=== PATIENT | male | born 1955 | race Caucasian/White ===

== ENCOUNTER → 2019-03-21 | Outpatient (REF) | payer MEDICARE ==
[2019-03-21 13:52] LABS: PLATELET COUNT, AUTOMATED 387 10^3/uL (150-450)
[2019-03-21 14:07] LABS: INR 1.13; PROTHROMBIN TIME 14.2 SECONDS (11.8-14.0)
[2019-03-21 14:08] LABS: PARTIAL THROMBOPLASTIN TIME 35.9 SECONDS (25.0-38.4)
== END ==
LOC: M LAB REF 13:03
PROVIDERS: ATTEND Internal Medicine Pulmonary Disease
DX: R91.8 Other nonspecific abnormal finding of lung field (principal); Z79.01 Long term (current) use of anticoagulants

== ENCOUNTER 2019-04-06 10:17 | Observation (INO) | payer MEDICARE ==
[~2019-04-06] VITALS: Ht 170.2 cm; Wt 74.0 kg
[~2019-04-06 10:17] MED LIST changes: -LIDOCAINE 1% MDV 20ML VIAL As Ordered ONE
--- NOTE | 2019-04-06 10:55 | REP ---
CT brain without contrast: History: CVA. 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 Bony calvarium is intact. Visualized paranasal sinuses are clear. There is mild vascular calcification in the carotid arteries bilaterally. No intraorbital abnormality is seen. On soft tissue window settings, there is no evidence of intracranial hemorrhage. There is no evidence of acute infarction. No mass, extra-axial fluid collection, or midline shift is seen. Impression: No acute intracranial abnormality. Electronically Signed by Brody Stewart MD 04/06/2019 10:52 A
[2019-04-06 11:11] LABS: BASO # 0.1 10^3/uL (0.0-0.2); BASO % 0.8 % (0.0-1.0); EOS # 0.6 10^3/uL (0.0-0.5); HEMATOCRIT 46.6 % (42.0-52.0); HEMOGLOBIN 14.7 g/dl (13.5-17.5); LYMPH # 1.9 10^3/uL (1.5-5.0); LYMPH % 12.8 % (24.0-44.0); MEAN CORPUSCULAR HEMOGLOBIN 27.4 pg (27.0-33.0); MEAN CORPUSCULAR HGB CONC 31.5 g/dl (32.0-36.5); MEAN CORPUSCULAR VOLUME 86.9 fl (80.0-96.0); MONO # 0.9 10^3/uL (0.0-0.8); MONO % 5.8 % (0.0-5.0); NEUTROPHILS # 11.1 10^3/uL (1.5-8.5); PLATELET COUNT, AUTOMATED 383 10^3/uL (150-450); RED BLOOD COUNT 5.36 10^6/uL (4.30-6.10); WHITE BLOOD COUNT 14.7 10^3/uL (4.0-10.0)
[2019-04-06 11:25] LABS: INR 1.03; PROTHROMBIN TIME 13.2 SECONDS (11.8-14.0)
[2019-04-06 11:26] LABS: PARTIAL THROMBOPLASTIN TIME 37.7 SECONDS (25.0-38.4)
[2019-04-06 11:38] LABS: BLOOD UREA NITROGEN 11 MG/DL (7-18); CALCIUM LEVEL 9.1 MG/DL (8.8-10.2); CARBON DIOXIDE LEVEL 27 MEQ/L (21-32); CHLORIDE LEVEL 107 MEQ/L (98-107); CK-MB VALUE MASS 1.4 NG/ML (<3.6); CPK CREATINE PHOSPHOKINASE 70 U/L (39-308); CREATININE FOR GFR 0.89 MG/DL (0.70-1.30); GLOMERULAR FILTRATION RATE > 60.0 (>49); GLUCOSE, FASTING 127 MG/DL (70-100); POTASSIUM SERUM 4.4 MEQ/L (3.5-5.1); SODIUM LEVEL 139 MEQ/L (136-145); TROPONIN I 0.19 NG/ML (< 0.10)
[2019-04-06] MEDS: ENOXAPARIN 40 MG/0.4 ML SYRINGE (J1650) SC SCH (14:00)
--- NOTE | 2019-04-06 14:37 | REP ---
MR angiography the brain without contrast: History: Left-sided weakness. Question CVA. Technique: 3-D [id number] MR angiography of the brain is acquired in the usual fashion and maximal intensity projection images were generated in rotational format about the vertical and horizontal axes. In addition, source axial T1-weighted images are viewed in cine mode. MR angiographic findings: The distal vertebral arteries are patent and co-dominant. Basilar artery is a little tortuous but widely patent. The posterior cerebral and superior cerebellar vessels are normal and symmetric. The distal internal carotid arteries are unremarkable. Anterior and middle cerebral arteries appear intact. There is no visible harding aneurysm or arteriovenous malformation. Impression: Unremarkable MR angiography the brain. Electronically Signed by Brody Stewart MD 04/06/2019 02:29 P
--- NOTE | 2019-04-06 14:50 | REP ---
MRI BRAIN WITHOUT CONTRAST: HISTORY: Left-sided weakness. Comparison head CT is from earlier this date. TECHNIQUE: Axial and sagittal imaging planes are utilized for T1 and T2-weighted scans. Sequences include spin-echo, fast spin echo, FLAIR, and diffusion weighted sequences. MRI FINDINGS: No bony calvarial defect is seen. Craniocervical junction and upper cervical cord are normal in appearance. No intraorbital abnormality is seen. Diffusion-weighted scans show no evidence of focal restricted diffusion to suggest acute ischemia. There is no evidence of intracranial hemorrhage. There are two or three foci of T2-weighted hyperintensity in the subcortical white matter of the frontal and parietal lobes bilaterally. These are consistent with small vessel changes. No other abnormality. IMPRESSION: Minimal small vessel changes. No evidence of acute ischemia or other significant abnormality. Electronically Signed by Brody Stewart MD 04/06/2019 06:39 P
--- NOTE | 2019-04-06 15:14 | HPEPDOC ---
General Date of Admission Apr 06, 2019 at 10:18 Date of Service: Apr 06, 2019 Chief Complaint The patient is a 63-year-old male admitted with a reason for visit of TIA. Source: Patient, Other (emergency room staff) Exam Limitations: No limitations Timing/Duration: Day(s) (today) Severity: Moderate Associated Symptoms: Denies Symptoms History of Present Illness This is a 63-year-old male who had been seen in the radiology department for a percutaneous lung biopsy. After the biopsy was completed the patient experienced symptoms of inability to move his left arm and left leg. Per radiology staff the patient was unable to lift his arm or leg off of the gurney. The patient was brought over to the emergency room. In preparation for acute treatment of stroke. The episode lasted 20 minutes and did not recur. CT scan was negative for any findings. The patient does not fully recall the event. He states he was experiencing heartburn at the time. He denies any dizziness, lightheadedness, shortness of breath or chest pain. He denies any other similar episode in the past aside from a dizzy spell back in 2007. The patient has been concerned about a left upper lobe nodule. He believes it was noted 20 years ago. He has noticed recent increased fatigue but has maintained a good appetite. He's been evaluated by PET scan, which he states illuminated his neck as opposed to the lesion. Patient was seen by ENT and there were no findings. The lung lesion is described is spiculated. He states he has been told he has "complicated" cancer. Home Medications Scheduled Aspirin (Ecotrin) 81 Mg Tablet.dr, 81 MG PO ASDIRECTED, (Reported) TAKES 4 TO 5 TIMES WEEKLY - NO SPECIFIC DAYS Cholecalciferol (Vitamin D3) (Vitamin D3) 1,000 Unit Capsule, 1,000 UNIT PO DAILY, (Reported) Propranolol HCl (Propranolol HCl) 40 Mg Tablet, 40 MG PO BID, (Reported) Ramipril (Ramipril) 10 Mg Capsule, 10 MG PO DAILY, (Reported) Simvastatin (Simvastatin) 20 Mg Tablet, 20 MG PO QHS, (Reported) Umeclidinium Brm/Vilanterol Tr (Anoro Ellipta 62.5-25 Mcg INH) 1 Each Blst.w.dev, 1 PUFF INH DAILY, (Reported) Allergies Coded Allergies: Penicillins (Verified Allergy, Intermediate, HIVES, 04/06/19) Past Medical History Medical History Past medical history is remarkable for essential hypertension and dyslipidemia for which he is on a medication regimen. Surgical History He denies ever having had any surgeries. 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 A-FIB/CHADSVASC A-FIB History Current/History of A-Fib/PAF?: No Current PO Anticoag Therapy: No Review of Systems Other systems Review of 10 systems is otherwise negative except as stated in the brief HPI Physical Examination General Exam: Positive: Alert, Cooperative Eye Exam: Positive: PERRLA, Conjunctiva & lids normal; Negative: EOMI, Sclera icteric, Ptosis, Other Eye Symptoms ENT Exam: Positive: Atraumatic, Mucous membr. moist/pink, Other ENT (poor den tition) Neck Exam: Positive: Supple; Negative: JVD, thyromegaly Chest Exam: Positive: Clear to auscultation, Normal air movement Heart Exam: Positive: Rate Normal, Regular Rhythm, Normal S1, Normal S2; Negative: Murmurs, Rubs Telemetry: Positive: No significant arrhythmia Abdomen Exam: Positive: Normal bowel sounds, Soft; Negative: Tenderness, Hepatospenomegaly Extremity Exam: Positive: Normal pulses; Negative: Clubbing, Cyanosis, Edema, Tenderness, Swelling, Other Skin Exam: Positive: Nl turgor and temperature Neuro Exam: Positive: Normal Gait, Normal Speech, Strength at 5/5 X4 ext, Normal Tone, Cranial Nerves 3-12 NL, Reflexes 2+, Other (patient does not exhibit any focal neuromotor or sensory deficit) Psych Exam: Positive: Mental status NL (patient is appropriately anxious), Oriented x 3 Vital Signs Vital Signs Date Time Temp Pulse Resp B/P (MAP) Pulse Ox O2 Delivery O2 Flow Rate FiO2 04/06/19 10:22 60 18 171/74 (106) 100 2.0 Laboratory Data Labs 24H Laboratory Tests 2 04/06/19 11:00: Bedside Glucose (Misc Panel) 114 04/06/19 11:01: Immature Granulocyte % (Auto) 0.6, Neutrophils (%) (Auto) 76.0H, Lymphocytes (%) (Auto) 12.8L, Monocytes (%) (Auto) 5.8H, Eosinophils (%) (Auto) 4.0H, Basophils (%) (Auto) 0.8, Neutrophils # (Auto) 11.1H, Lymphocytes # (Auto) 1.9, Monocytes # (Auto) 0.9H, Eosinophils # (Auto) 0.6H, Basophils # (Auto) 0.1, Nucleated Red Blood Cells % (auto) 0.0, Prothrombin Time 13.2, Prothromb Time International Ratio 1.03, Activated Partial Thromboplast Time 37.7, Anion Gap 5L, Glomerular Filtration Rate > 60.0, Calcium Level 9.1, Total Creatine Kinase 70, Creatine Kinase MB 1.4, Creatine Kinase MB Relative Index 2.00, Troponin I 0.19H CBC/BMP Laboratory Tests 04/06/19 11:01 Assessment/Plan 1. Transient ischemic attack. Patient had an episode of about 20 minutes of immobility and weakness to his left upper and lower extremity. It was not accompanied by any other symptoms aren't completely resolved. CT scan of the head was negative for any lesion. Patient did not require intervention with thrombolytic. Brain MRI results are pending. Not currently exhibit any deficits and does not have any rehabilitation needs. 2. Risk factor management. Patient does have underlying history of essential hypertension and dyslipidemia. Patient will continue with daily aspirin and statin. 3. Left upper lobe lung nodule. Patient has just undergone biopsy of this. Further management will be determined by results. The patient is placed on telemetry observation status; we are anticipating his length of stay to be less than 2 midnights with initial workup. Echocardiogram and carotid Doppler results may not be available this weekend; patient could have outpatient follow-up. Plan / VTE VTE Prophylaxis Ordered?: Yes (Lovenox) Plan Diet: Continue Current Activity: Continue Current Diagnostics: Repeat Labs in AM, Ultrasound, MRI, TTE Anticipated Discharge: Home MCKINLEY MURPHY MD Apr 06, 2019 15:14
[2019-04-06 16:00] VITALS: BP 132/67
[2019-04-06] MEDS ORDERED: SLF 3 ML SYR IV PRN (16:45)
[2019-04-06] MEDS: ASPIRIN 81 MG ENTERIC TAB PO SCH (18:53)
[2019-04-06 20:00] VITALS: BP 127/66
--- NOTE | 2019-04-06 20:29 | ECGEPIP ---
[facility] - ED Test Date: 2019-04-06 Pat Name: DOMINIC OSBORN Department: Room: - Gender: Male Dopster: : [id number] Requested By: Mirna Winn Order Number: [id number] Reading MD: Mirna Winn Measurements Intervals [place] Rate: 58 P: 53 IN: 110 QRS: 11 QRSD: 90 T: 68 QT: 434 QTc: 429 Interpretive Statements SINUS BRADYCARDIA WITH SHORT IN INTERVAL NO PRIOR Electronically Signed on 04-06-2019 20:29:23 EST by Mirna Winn
[2019-04-06] MEDS: PROPRANOLOL 20 MG TAB PO SCH (20:38)
[2019-04-06] MEDS: SLF 3 ML SYR IV SCH (20:38)
[2019-04-06] MEDS ORDERED: SIMVASTATIN 20 MG TAB PO SCH (21:00)
[2019-04-07] VITALS (7 sets, daily range): BP systolic 116–198; BP diastolic 60–98
[2019-04-07] MEDS: SLF 3 ML SYR IV SCH ×2 (05:48→14:51)
--- NOTE | 2019-04-07 06:52 | REP ---
Duplex carotid sonography: History: TIA. Findings: Antegrade flow was observed in both vertebral arteries. Right carotid: The right common carotid artery shows mild diffuse intimal thickening. There is mild mixed plaquing in the bulb and proximal ICA on two-dimensional scanning on the right side. Color flow and spectral Doppler interrogation are unremarkable on the right. Velocity chart right carotid: CCA PSV: 77 cm/s ICA PSV: 69 cm/s ICA EDV: 23 cm/s ECA PSV: 90 cm/s Right ICA/CCA ratio normal 0.9. Impression: Less than 50% category narrowing in the right ICA by Doppler velocity criteria. Left carotid: The left common carotid artery shows mild diffuse intimal thickening. There is mild to moderate mixed plaquing in the bulb, proximal ICA, and proximal ECA on the left side on two-dimensional scanning. Color flow and spectral Doppler interrogation are unremarkable however. Velocity chart left carotid: CCA PSV: 95 cm/s ICA PSV: 84 cm/s ICA EDV: 24 cm/s ECA PSV: 94 cm/s Left ICA/CCA ratio normal 0.9. Impression: Less than 50% category narrowing in the left ICA by Doppler velocity criteria. Electronically Signed by Brody Stewart MD 04/07/2019 08:34 A
[2019-04-07 08:03] LABS: HEMOGLOBIN 14.5 g/dl (13.5-17.5); MEAN CORPUSCULAR HEMOGLOBIN 27.4 pg (27.0-33.0); MEAN CORPUSCULAR HGB CONC 31.5 g/dl (32.0-36.5); MEAN CORPUSCULAR VOLUME 86.8 fl (80.0-96.0); PLATELET COUNT, AUTOMATED 408 10^3/uL (150-450); WHITE BLOOD COUNT 12.1 10^3/uL (4.0-10.0)
[2019-04-07] MEDS: ASPIRIN 81 MG ENTERIC TAB PO SCH (08:19)
[2019-04-07] MEDS: PROPRANOLOL 20 MG TAB PO SCH (08:19)
[2019-04-07] MEDS: ENOXAPARIN 40 MG/0.4 ML SYRINGE (J1650) SC SCH (08:20)
[2019-04-07 08:32] LABS: ALBUMIN 3.6 GM/DL (3.2-5.2); ALT/SGPT 38 U/L (12-78); BILIRUBIN,TOTAL 0.4 MG/DL (0.2-1.0); BLOOD UREA NITROGEN 12 MG/DL (7-18); CALCIUM LEVEL 9.1 MG/DL (8.8-10.2); CARBON DIOXIDE LEVEL 29 MEQ/L (21-32); CHLORIDE LEVEL 105 MEQ/L (98-107); CREATININE FOR GFR 0.95 MG/DL (0.70-1.30); GLOMERULAR FILTRATION RATE > 60.0 (>49); GLUCOSE, FASTING 119 MG/DL (70-100); POTASSIUM SERUM 4.2 MEQ/L (3.5-5.1); SODIUM LEVEL 139 MEQ/L (136-145); TOTAL PROTEIN 7.1 GM/DL (6.4-8.2)
[2019-04-07 08:37] LABS: CK-MB VALUE MASS 1.3 NG/ML (<3.6); MB/CK RELATIVE INDEX 0.66 (< OR =4); TROPONIN I 0.32 NG/ML (< 0.10)
[2019-04-07] MEDS ORDERED: ramipriL 5 MG CAP PO SCH (09:00)
[2019-04-07] MEDS ORDERED: ATORVASTATIN 20 MG TAB PO SCH (09:00)
[2019-04-07] MEDS ORDERED: VITAMIN D 1,000 INTERNATIONAL UNITS TABLET PO SCH (09:00)
--- NOTE | 2019-04-07 09:14 | IPN ---
DATE: 04/07/2019 Mr. Collins was seen on the hospitalist service. He was admitted with transient ischemic attack (TIA). He had a half hour of left hemiparesis after a CT guided lung biopsy. MRI of the brain was negative. Ultrasound of carotids showed no stenosis. His neurologic exam has returned to baseline. He had an elevated troponin on admission, had flipped T waves on telemetry overnight. No electrocardiogram ordered with the flipped T waves. No morning labs ordered. I tried to call his primary care office to see what kind of "complicated cancer" he feels he has, but there is no answer. PHYSICAL EXAMINATION: Vital signs: 198/98 (patient says "my blood pressure is always that high in the morning". Pulse 55, respiratory rate 18, 96% oxygen saturation. General appearance: Alert, conversant, no distress. He is ambulating in the room. He is impatient to leave the hospital. Asking if he can get dressed and leave. HEENT: Unremarkable. No facial droop or weakness. Lungs: Clear. Heart: Regular rate and rhythm. 1/6 systolic ejection murmur. Abdomen: Soft, nontender. No masses. Trace peripheral edema. Moves arms and legs with equal strength. He has normal strength in the upper and lower extremities, grade 5/5. Normal coordination, no , normal gait. LABS: No morning labs were ordered. IMPRESSION: 1. TIA. He is back to baseline. He is currently on aspirin 81 mg daily. Statin therapy with simvastatin and TATIANA inhibitor and beta beatrice therapy. Brain MRI showed no stroke. He has echocardiogram pending. Standard treatment would be changing his simvastatin to a high intensity statin such as atorvastatin 40 mg daily and continuing antiplatelet therapy. 2. Elevated troponin/flipped T waves on EKG. Stat EKG ordered. Troponins ordered. Morning labs ordered. Followup based upon this. 3. Hypertension. Antihypertensives are ordered and pending. He is on propranolol 40 mg twice a day and ramipril 10 mg daily. Yesterday his daytime and evening blood pressures were acceptable. 4. Hyperlipidemia. Change diet, discontinue statin in the face of TIA. 5. Patient is probably going to leave against medical advice (AMA). Risks were detailed. He understands we are in the midst of a cardiac workup and at a minimum he should be here on telemetry for the next 24 hours. He understands and accepts the risk of that, but at this point he is willing to stay for the EKG and the results of the lab tests and I suspect he will probably leaving AMA.
[2019-04-07] MEDS ORDERED: CLOPIDOGREL 75 MG TAB PO STA (15:07)
[2019-04-07 17:16] LABS: CK-MB VALUE MASS 1.4 NG/ML (<3.6); MB/CK RELATIVE INDEX 0.74 (< OR =4); TROPONIN I 0.24 NG/ML (< 0.10)
--- NOTE | 2019-04-07 17:58 | CR ---
DATE OF CONSULTATION: 04/07/2019 URGENT CARDIOLOGY CONSULTATION REFERRING PHYSICIAN: Dr. Romero Rae, with copy to Dr. Mae in [place], [place] and [facility] in [place], [place]. INDICATION: Transient intense left arm discomfort, serial EKG repolarization changes and elevation in Troponin-I level. HISTORY: This is 63-year-old single, retired gentleman, underwent elective percutaneous lung biopsy of a lesion yesterday. The procedure was complicated by report of left arm weakness and discomfort. Postprocedure, that persisted for up to 20 minutes. Suspected to be neurological in origin. Serial EKGs were obtained along with serial cardiac enzymes. EKG this morning while lying resting showed definite impressive lateral precordial and inferior T-wave inversions, and Troponin-I this morning increased to 0.32. Cardiology consultation was placed. Customarily, the patient does not have any particular limitations. He does his own yard work and recent snow blowing. Ultimately limited by dyspnea he attributes to his longstanding smoking history. Has never experienced chest or jaw or left arm discomfort in the past. His only prior EKG abnormality, he claims, was sinus bradycardia. He does describe undergoing nuclear stress testing and echocardiographic study in the remote past because of his coronary risk factors, and these were reportedly negative at that time. No history of heartburn, reflux, dysphagia or gastrointestinal (GI) bleeding. Was exposed to secondhand smoke growing up and started smoking himself at age 16, up to one pack per day. Currently trying to cut down. Describes a chronic productive cough with scant hemoptysis the past few months. This led to chest x-ray and subsequent chest CT scan, which documented a speculated left upper lobe nodule and suspected malignancy. Was referred to [facility] in [place] and subsequently, Dr. Schultz, pulmonary medicine here, to arrange for tissue diagnosis of suspected cancer. Does admit to having some shortness of breath with his more vigorous activities. Remote history of pneumonia, but not never hospitalized. Usually sleeps well without dyspnea or nocturnal dyspnea. No history of rheumatic fever, heart murmur or known cardiomegaly. Treated hypertension since his late 40s. Usual blood pressure readings in the 140s/60s. No significant weight problem (weighed 175 pounds at age 16; max 20 years ago; current weight is been stable the past year). No history of palpitations, but well documented longstanding sinus bradycardia in the 50s. No history of sudden premature cardiac in his family. No congenital deafness. Drinks 20 ounces of caffeinated soda daily and several drinks with friends on a Tuesday night. Still smokes approximately five cigarettes. No history of thyroid dysfunction and does not use [id number] decongestants, energizers or diet aids. Single episode of orthostatic lightheadedness, 2007, attributed to relative volume depletion, dehydration. No history of actual fall or loss of consciousness. Left arm discomfort, as mentioned yesterday, but no other history of lateralizing neurological deficit, flank pain, hematuria or blue toe syndrome. No history of claudication, varicose veins, phlebitis or ankle swelling. CORONARY RISK FACTORS: Male gender, age, hypertension, smoking, hypercholesterolemia. Past 15 years borderline diabetes. No known history of carotid vascular or peripheral vascular disease. No family history of premature coronary disease. OTHER PAST MEDICAL/SURGICAL HISTORY Only single prior hospitalization 2007 for an episode of dizziness. No prior surgeries. SYSTEMS REVIEW: At the time of his presentation with his scant hemoptysis 12/16/2018, did have a feverishness and mild leukocytosis, but no recent weight loss, night sweats or chills. No visual problems or hearing problems. Respiratory and cardiovascular as mentioned above. GI as mentioned above. No abdominal pain, change in bowel habit. No urological symptoms. May have some right hip pain but no other musculoskeletal complaints. All other systems review is negative. MEDICATIONS: At home he was taking: - propranolol 40 mg by mouth twice a day - ramipril 10 mg daily - simvastatin 20 mg daily - aspirin 325 mg 4 or 5 times weekly - Anoro Ellipta 62.5/25 mcg 1 puff daily - vitamin D3 1000 units daily. ALLERGIES: PENICILLINS (hives). PHYSICAL EXAMINATION: CONSTITUTIONAL: Pleasant, bright elderly male of medium body build, laying comfortably with head of bed elevated 30 degrees. VITAL SIGNS: Heart rate 56 beats per minute and regular blood pressure 136/68 supine, 126/66 sitting with legs dependent, respiratory rate 16, oxygen saturation 95% on room air. Afebrile. Weight 163 pounds, height 67 inches, body mass index (BMI) 25.6. EYES: Normal conjunctivae and lids. No pallor or icterus. No xanthelasma. ENT/MOUTH: Normal oral moisture. No central cyanosis. NECK: Trachea midline. Thyroid not enlarged. Neck veins at the level of sternal angle. RESPIRATORY: Normal chest configuration with slightly reduced chest excursion, but good air entry over both lung dunne with no current inspiratory rales. Some localized variable rough inspiratory crepitations left lung field. Prolongation of expiration with a variable audible wheeze. CARDIOVASCULAR: Apical impulse at the midclavicular line, fifth costal space. S1 slightly soft, S2 normal. Normal S2 splitting. No audible gallop, murmur or rub. Normal carotid upstrokes and volume with no bruits. Upper extremity and femoral pulses were symmetrical and normal. Pedal pulses were symmetrically decreased. No pedal edema. Abdominal aorta was not palpable. No bruits. GASTROINTESTINAL (GI): Soft, nontender abdomen with no hepatosplenomegaly. Normal bowel sounds. Rectal examination not indicated. MUSCULOSKELETAL: No apparent joint deformities. Normal muscular strength and tone. Normal spine curvature. NEUROLOGICAL/PSYCHOLOGICAL: Normal symmetrical facial, eye and extremity movements. No involuntary movements. Affect was appropriate. Bright and alert and oriented. Gave me a lucid history. SKIN: No obvious skin rashes, pallor or icterus. INVESTIGATIONS: Portable upright chest x-ray following his lung biopsy yesterday showed heart size upper limits of normal for this technique. Normal greater vessels and pulmonary vasculature. Subtle infiltrate left upper perihilar region. Mild right apical fibrosis. No pneumothorax. No significant bony abnormality. EKGs: 04/06/2019 at 10:30 showed sinus bradycardia at 58 bpm. Possible left atrial conduction disturbance. Slightly low limb voltages with incomplete right bundle branch block (RBBB) and persistent S waves V5 and V6 in keeping with his pulmonary disease. Repolarization appearance was normal. 04/07/2019 at 8:28 a.m. this morning showed sinus bradycardia 54 bpm, clear-cut, impressive T-wave inversions that were symmetrical from V3 through to V6, as well as all three inferior leads. LABORATORY DATA: Blood work today showed a hemoglobin of 14.5, white blood cell count 12,000 down from 14.7 thousand yesterday. Normal platelet count. Normal PT/PTT. Chemistry confirmed electrolyte balance with potassium 4.2, BUN 12, creatinine 0.95, fasting glucose 119 this morning. Normal liver function studies. Albumin 3.6. CPK slightly elevated or changed today from 7 yesterday to 198 this morning. Troponin-I increased from 0.19 yesterday to 0.32 today. IMPRESSION/PLAN: 1. Acute coronary syndrome: His suspected left arm symptoms yesterday, I suspect, were due to myocardial ischemia, not a neurological process. His neurological scanning showed no cerebral problem. MRA was negative. Carotid ultrasound was negative. Impressive serial EKG changes with increase in troponin-I. EKG changes this morning were without chest pain. I have discussed this frankly with the patient and believe he needs urgent transfer for cardiac catheterization promptly and will require a revascularization procedure. The indication and procedure and potential risks were discussed with the patient. He was somewhat overwhelmed, having undergone extensive testing for his left upper lung lesion and was prepared to undergo, finally, oncology treatment versus lung resection, and was not prepared for this, but after careful consideration was agreeable. I have contacted [facility] directly to facilitate his transfer by ambulance for prompt intervention. 2. Abnormal EKG as mentioned, primarily a reflection of his pulmonary disease. Sinus bradycardia prompted by his beta-beatrice therapy, impressive repolarization changes as mentioned. 3. Essential hypertension: Has no symptoms or signs of congestion and his current blood pressure would be considered well-controlled on his combination propranolol and lisinopril. Chemistry yesterday and today showed electrolyte balance with normal renal function. 4. Left upper lung lesion: CT scan reporting speckled appearance. PET scan shows localized uptake, no evidence of lymphadenopathy. Potential candidate for resection. Further arrangements will be made with the [facility] in [place]. Currently remains on bronchodilator therapy as per pulmonary medicine, Dr. Andre Schultz, here in [place]. As mentioned, the patient appears to understand the nature of the emergency and the need for rapid intervention to avoid major cardiovascular event. [facility]
--- NOTE | 2019-04-08 06:15 | ECHO ---
DATE OF PROCEDURE: 04/07/2019 DATE OF : 1955 AGE: 63 GENDER: Male HEIGHT: 67 inches WEIGHT: 165 pounds BODY SURFACE AREA: 1.8 m2 INPATIENT: Progressive care unit (PCU) Room 3217 REFERRING PHYSICIAN: Dr. Ansley Mc INDICATION: Left arm pain. Abnormal EKG. MEASUREMENTS: 2-D Measurements: RV: 4.0 cm LV: 4.3 cm Septum: 1.0 cm Posterior wall: 1.0 cm Aortic root: 3.4 cm LA: 3.6 cm LVEF: 65% Doppler Measurements: AV: 1.21 m/sec LVOT: 0.96 m/sec LVOT: 2.0 cm MV: E 82, A 90, EA ratio 0.9 Early mitral deceleration time: 260 ms E prime medial: 6.4, A prime medial: 10.6, E prime lateral: 9.6 Average E/E prime ratio: 10.3/PCWP: 14.6 mmHg PV: 0.75 m/sec Pulmonary artery acceleration time: 120 ms PASP: 29 mmHg IVC: 1.9 cm COMMENTS: Sinus bradycardia without intraventricular conduction disturbance. Slightly challenging study in light of the patient's pulmonary disease but diagnostically useful information was still obtained. M-mode and two-dimensional echocardiography was performed with pulsed, continuous wave, color flow and tissue Doppler studies. Normal left ventricular size, wall thickness and wall motion. Left atrial size upper limits of normal with Doppler evidence of an impairment of grade 1 LV diastolic dysfunction and slightly elevated mean left atrial pressure. Normal right heart chamber sizes and motion and estimated pulmonary arterial pressure. Normal IVC size and collapse against an elevated central venous pressure. Mild aortic valvular sclerosis without functional abnormality. Normal aortic dimensions. Normal appearing and functioning mitral and tricuspid valves. No apparent intracardiac mass or pericardial effusion.
--- NOTE | 2019-04-08 10:59 | ECGEPIP ---
[facility] Test Date: 2019-04-07 Pat Name: DOMINIC OSBORN Department: Room: [place] [address] Gender: Male Delivery Rep: KALI : 1955 Requested By: Dominic Rae Order Number: [id number] Reading MD: Paco Peña Measurements Intervals [place] Rate: 54 P: 40 OR: 133 QRS: 9 QRSD: 89 T: -77 QT: 457 QTc: 434 Interpretive Statements Sinus bradycardia Incomplete right bundle branch block Nonspecific ST-T wave abnormalities Compared to prior tracing of , repolarization abnormalities are new Electronically Signed on 04-08-2019 10:59:01 EST by Paco Peña
== END 2019-04-07 16:50 | disposition short-term general hospital (02) ==
LOC: M ED 10:17 → M ED INP 10:18 → ENRESERVTM 15:30 → ENRESERVDT 15:30 → M PCU 15:58
PROVIDERS: ADMIT Internal Medicine; ATTEND Internal Medicine
DX: I24.9 Acute ischemic heart disease, unspecified (principal); R74.8 Abnormal levels of other serum enzymes; R94.31 Abnormal electrocardiogram [ECG] [EKG]; I10 Essential (primary) hypertension; E78.5 Hyperlipidemia, unspecified; Z98.890 Other specified postprocedural states; R91.1 Solitary pulmonary nodule; R53.1 Weakness; R73.03 Prediabetes; Z79.899 Other long term (current) drug therapy; Z79.82 Long term (current) use of aspirin; Z88.0 Allergy status to penicillin; F17.200 Nicotine dependence, unspecified, uncomplicated
CPT/HCPCS: 36415; 70450; 70544; 70551; 80048; 80053; 82550; 82553; 84484; 85025; 85027; 85610; 85730; 86850; 86900; 86901; 93005; 93041; 93306; 93880; 94760; 96372; 99285; G0378; J1650

== ENCOUNTER → 2019-04-06 | Outpatient (CLI) | payer MEDICARE ==
[~2019-04-06] MED LIST: ANOR1AER INH; ECOT81TA5 PO; LIDOCAINE 1% MDV 20ML VIAL As Ordered ONE; PROP40TA62 PO; RAMI1CAP26 PO; SIMV20TA22 PO; VITA100054 PO
[2019-04-06 08:56] VITALS: BP 166/71
--- NOTE | 2019-04-06 10:29 | REP ---
Sitting AP chest x-ray: Single view. History: Post CT guided needle biopsy left upper lobe lung nodule evaluation. Comparison is made with CT imaging from PET CT February 08, 2019. Findings: There is an infiltrate in the left upper perihilar region at the biopsy site. There is no evidence of pneumothorax. Mild right apical interstitial fibrosis is seen. Heart is not enlarged. Pulmonary vasculature is not increased. No significant bony abnormality. Impression: There is no evidence of pneumothorax. There is an infiltrate at the biopsy site in the left upper lobe consistent with a small amount of post biopsy hemorrhage. Otherwise no acute disease. As we were setting up of for the post biopsy chest x-ray, the nurses noted that the patient's affect changed and that he seemed to have left upper extremity weakness. He was taken immediately to the emergency room for evaluation of possible CVA. Electronically Signed by Brody Stewart MD 04/06/2019 10:20 A
--- NOTE | 2019-04-06 18:42 | REP ---
CT-guided left lobe lung biopsy The procedure is performed by STEPHON Laguna, under the direct supervision of Dr. Stewart. The risks and benefits of the procedure were explained to the patient and informed consent was obtained both orally and written. Directly prior to the start of the procedure, a formal timeout was done in the exam room. The left upper lobe lung nodule was localized using CT guidance. Skin was prepped and draped in the usual sterile fashion. 4 ml of 1% lidocaine 10 mg/ml was used as a local anesthetic. Using CT guidance a 19/20 gauge coaxial needle biopsy system was inserted and advanced into the nodule. 4 core biopsy samples were obtained and sent to the lab. CT images obtained directly after the biopsy show no evidence of pneumothorax. Shortly after the procedure the patient had a change in affect as well as left-sided weakness, and was taken to the ER for further evaluation. Reviewed by STEPHON Ramos 04/06/2019 10:35 A Electronically Signed by Brody Stewart MD 04/06/2019 06:32 P
== END ==
LOC: M IRPRO 08:06
PROVIDERS: ATTEND Internal Medicine Pulmonary Disease
DX: J84.10 Pulmonary fibrosis, unspecified (principal)